=== PATIENT | female | born 1940 | race Caucasian/White ===

== ENCOUNTER → 2017-01-20 | Outpatient (CLI) | payer MEDICARE, OTHER ==
[~2017-01-20] MED LIST: ALBUTEROL17 GM; ARIMIDEX1 MG PO; CARAFATE1 GM; HYCODAN60 ML 5MG/; HYDROCODON-ACE1 EAC9 PO; MEDROL DOSEPAK4 MG; PANTOPRAZOLE SO40 MG PO; SYNTHROID PO; VITAL-D RX TABL1 TAB PO; ZITHROMAX PO
--- NOTE | ~2017-01-20 | MY24 ---
[facility] A Service of [facility] & [facility] / [facility] RADIOLOGY TEXT RESULTS PATIENT: YAMILA LOPEZ LOCATION: [facility] : 38 UNIT #: [id number] AGE: [address]: Jb Tran MD SEX: F ORDER DR: [id number] [facility]. [place], [place] [address] [id number] O MR#: [id number] Acc #: [id number] NAME: YAMILA LOPEZ : 1940 SEX: F STUDY DATE/TIME: 01/20/2017 10:17 UNIT: [facility] ROOM: STUDY DESCRIPTION: MAIRA MOHAMUD STOVER W/ CAD UNI LT Attending Physician: Jb Tran M.D. Ordering Physician: Jb Tran M.D. Primary Care Physician: Yamile Alvarenga M.D. MEDICAL IMAGING REPORT This report is preliminary unless electronic signature is present EXAM Unilateral left digital diagnostic mammogram with CAD 01/20/2017 INDICATIONS 76-year-old female with a history of breast cancer on the right and subsequent mastectomy in 2013. Annual follow up. No family history of breast cancer. No current problems. No history of chemotherapy or radiation therapy. TECHNIQUE CC, MLO and true lateral views of the left breast were obtained and reviewed with an FDA-approved CAD device. COMPARISON 01/16/2016, 01/05/2015, 01/17/2014, 01/13/2014, 10/27/2013. FINDINGS Breast parenchyma is composed of scattered fibroglandular densities, and the pattern is unchanged. There is no new dominant nodule mass or suspicious cluster of microcalcifications. No adenopathy. Fibroglandular predominance in the upper hemisphere, left breast, unchanged for technical factors. Absent new or worsening symptoms in either breast, the patient should return for a repeat mammogram in 1 year. Findings and recommendations were discussed with the patient here in the Department, and she voiced understanding and agreement. IMPRESSION Negative left diagnostic mammogram. 1-year followup recommended. Patients over the age of 40 are entered into a reminder system with target [facility] A Service of [facility] & [facility] / [facility] RADIOLOGY TEXT RESULTS PATIENT: YAMILA LOPEZ LOCATION: [facility] : 38 UNIT #: [id number] AGE: [address]: Jb Tran MD SEX: F ORDER DR: due date for the next mammogram. A result letter will also be sent to the patient. BIRADS: 1 Negative Please note that this report did not become available for review or signature until 02/27/2017 Dictated by... Oscar Kam M.D. THIS IS AN ELECTRONICALLY VERIFIED REPORT Oscar Kam M.D. at 02/27/2017 9:33 AM Sharon TD: 01/20/2017 15:35 JOB #: [id number] MEDICAL IMAGING REPORT Page 1 of 1 COPY
== END | disposition home or self-care (01) ==
LOC: CMAM 09:51
DX: Z08 Encounter for follow-up examination after completed treatment for malignant neoplasm (principal); Z85.3 Personal history of malignant neoplasm of breast; Z90.11 Acquired absence of right breast and nipple
CPT/HCPCS: G0206

== ENCOUNTER → 2017-03-21 | Outpatient (CLI) | payer MEDICARE, OTHER ==
--- NOTE | ~2017-03-21 | CT2 ---
[facility] A Service of [facility] & [facility] RADIOLOGY TEXT RESULTS PATIENT: YAMILA LOPEZ [facility] : 39 UNIT #: [id number] AGE: [address]: Kaylin Bowman APRN SEX: F ORDER DR: [id number] [facility] [address] [place], [place] [address] [id number] O MR#: [id number] Acc #: [id number] NAME: YAMILA LOPEZ. : 1940 SEX: F STUDY DATE/TIME: 03/21/2017 13:59 UNIT: [facility] ROOM: STUDY DESCRIPTION: CT Abd and Pelv W Cont Attending Physician: Kaylin Bowman A.P.R.N. Referring Physician: Kaylin Bowman A.P.R.N. Ordering Physician: Kaylin Bowman A.P.R.N. Primary Care Physician: Kaylin Bowman A.P.R.N. MEDICAL IMAGING REPORT This report is preliminary unless electronic signature is present EXAM CT abdomen and pelvis INDICATIONS Low back pain radiating into the abdomen. Left lower quadrant abdominal pain. Intermittent pain for [address] of the abdomen and pelvis with p.o. and IV contrast (100 mL Isovue-370 IV contrast). Coronal and sagittal reconstructions were obtained. This CT exam was performed with one or more of the following radiation dose reduction techniques: Automatic exposure control, adjustment of mA and/or kV according to patient size, and iterative reconstruction. COMPARISON CT abdomen dated 06/17/2014. FINDINGS There is postsurgical change of right mastectomy. There is a small hiatal hernia containing a portion of the gastric fundus. The solid abdominal organs enhance normally. The gallbladder is not distended. The bowel is not dilated. No enlarged retroperitoneal or mesenteric lymph nodes. The abdominal aorta is normal in caliber. PELVIS: Bladder is unremarkable. The uterus and ovaries are within normal limits. No enlarged pelvic or inguinal lymph nodes. No acute osseous abnormalities. IMPRESSION 1. No acute findings in the abdomen to account for the patient's symptoms. STS. [facility] A Service of [facility] & [facility] RADIOLOGY TEXT RESULTS PATIENT: YAMILA LOPEZ LOCATION: [facility] : 38 UNIT #: [id number] AGE: [address]: Kaylin Bowman APRN SEX: F ORDER DR: 2. Small hiatal hernia. Dictated by... Tanmay Diaz M.D. THIS IS AN ELECTRONICALLY VERIFIED REPORT Tanmay Diaz M.D. at 03/25/2017 9:25 AM RPJavier/sameera TD: 03/22/2017 12:05 JOB #: [id number] MEDICAL IMAGING REPORT Page 1 of 1 COPY
[2017-03-21 16:11] LABS: POC - CREATININE 0.83 mg/dL (0.44-1.03); POC - GFR >60.0 mL/min (>60)
== END | disposition home or self-care (01) ==
LOC: CCAT 12:19
PROVIDERS: Nurse Practitioner
DX: R10.32 Left lower quadrant pain (principal); K44.9 Diaphragmatic hernia without obstruction or gangrene
CPT/HCPCS: 74177; 82565; Q9967